=== PATIENT | male | born 1980 | race African-American/Black ===

== ENCOUNTER 2018-03-18 11:00 | Emergency (ER) | payer SELFPAY ==
[~2018-03-18] VITALS: Ht 175.3 cm; Wt 86.2 kg
[2018-03-18 11:29] LABS: Urine WBC None Seen /hpf (0 - 3)
[2018-03-18 12:11] LABS: Urine Bacteria FEW /hpf (None Seen); Urine Blood Negative /uL (Negative); Urine Mucus FEW (None Seen); Urine Specific Gravity 1.022 (1.001-1.035)
[2018-03-18 13:47] VITALS: BP 131/79
== END 2018-03-18 14:28 | disposition home or self-care (01) ==
LOC: ER 11:00
DX: N39.0 Urinary tract infection, site not specified (principal); M79.1 Myalgia; Z88.8 Allergy status to other drugs, medicaments and biological substances; Z88.6 Allergy status to analgesic agent
CPT/HCPCS: 72110; 81001